=== PATIENT | male | born 1945 | race Caucasian/White ===

== ENCOUNTER 2022-01-05 11:49 | Inpatient (IN) | payer BC, OTHER ==
[~2022-01-05] VITALS: Ht 170.2 cm; Wt 60.7 kg
[2022-01-05 12:25] LABS: MEAN CORPUSCULAR HEMOGLOBIN 29.4 pg (28.0-32.0); MEAN CORPUSCULAR VOLUME 96.4 fL (80.0-94.0); MEAN PLATELET VOLUME 9.1 fl (7.4-10.4); RED BLOOD CELL COUNT 2.25 mill/uL (4.7-6.1); RED CELL DISTRIBUTION WIDTH 18.4 % (11.6-14.6)
[2022-01-05 12:28] LABS: CHLORIDE 109 mEq/L (98-107)
[2022-01-05 12:34] LABS: HEMATOCRIT. 21.6 % (42.0-52.0); HEMOGLOBIN. 6.6 g/dL (14.0-18.0); PLATELET 19 x1000/uL (130-400)
[2022-01-05 13:23] LABS: NUCLEATED RED BLOOD CELLS 15 /100 WBC
[2022-01-05 13:24] LABS: PLATELET ESTIMATE MARKEDLY DECREASED
[2022-01-05 22:00] VITALS: BP 118/53
[2022-01-06] VITALS (15 sets, daily range): BP systolic 87–103; BP diastolic 44–56
[2022-01-06 10:33] LABS: CHLORIDE 109 mEq/L (98-107)
[2022-01-06 10:40] LABS: MEAN CORPUSCULAR HEMOGLOBIN 29.3 pg (28.0-32.0); MEAN CORPUSCULAR VOLUME 92.4 fL (80.0-94.0); MEAN PLATELET VOLUME 8.1 fl (7.4-10.4); RED BLOOD CELL COUNT 2.26 mill/uL (4.7-6.1); RED CELL DISTRIBUTION WIDTH 17.9 % (11.6-14.6)
[2022-01-06] MEDS ORDERED: DIPHENHYDRAMINE 50MG/ML VIAL IV PRN (10:45)
[2022-01-06] MEDS ORDERED: ACETAMINOPHEN 650MG SUPP PR PRN (10:45)
[2022-01-06] MEDS ORDERED: ONDANSETRON HCL 4MG/2ML INJ IV PRN (10:45)
[2022-01-06] MEDS ORDERED: LORAZEPAM 2MG/ML CPJ IV PRN (10:45)
[2022-01-06] MEDS ORDERED: IPRATROPIUM/ALBUTEROL 0.5-3(2.5)MG/3ML NEB NEB PRN (10:45)
[2022-01-06] MEDS ORDERED: MORPHINE SULFATE 2 MG/ML CPJ (NOT FOR IM USE) IV PRN (10:45)
[2022-01-06 10:54] LABS: HEMATOCRIT. 20.9 % (42.0-52.0); HEMOGLOBIN. 6.6 g/dL (14.0-18.0)
[2022-01-06 11:54] LABS: NUCLEATED RED BLOOD CELLS 12 /100 WBC
[2022-01-06 11:55] LABS: PLATELET ESTIMATE MARKEDLY DECREASED
[2022-01-06 11:56] LABS: PLATELET 27 x1000/uL (130-400)
[2022-01-06 16:37] LABS: PROTHROMBIN TIME 11.2 sec (9.6-11.0)
[2022-01-06 17:07] LABS: TOTAL IRON BINDING CAPACITY 205 ug/dL (250-450)
[2022-01-06 17:38] LABS: HEPATITIS B SURFACE ANTIGEN NEGATIVE
[2022-01-06 17:54] LABS: FOLIC ACID (FOLATE) SERUM 19.5 ng/mL (>5.38)
[2022-01-06 21:14] LABS: HEMATOCRIT 22.7 % (42.0-52.0); HEMOGLOBIN 7.4 g/dL (14.0-18.0)
[2022-01-06] MEDS: BACITRACIN 15GM TUBE TOP SCH (22:00)
[2022-01-06] MEDS: FAMOTIDINE 20MG TABLET PO SCH (22:00)
[2022-01-07] VITALS (13 sets, daily range): BP systolic 68–125; BP diastolic 37–68
[2022-01-07 01:14] LABS: CLARITY URINE CLEAR (CLEAR); COLOR URINE YELLOW (YELLOW); KETONES URINE NEGATIVE (NEGATIVE); LEUKOCYTE ESTERASE URINE NEGATIVE (NEGATIVE); NITRITE URINE NEGATIVE (NEGATIVE); OCCULT BLOOD URINE NEGATIVE (NEGATIVE); PROTEIN URINE NEGATIVE (NEGATIVE); SPECIFIC GRAVITY URINE 1.018 (1.005-1.030)
[2022-01-07 01:29] LABS: *AMPHETAMINES SCREEN URINE NEGATIVE (NEGATIVE); *BARBITURATES SCREEN URINE NEGATIVE (NEGATIVE); *BENZODIAZEPINES SCREEN URINE NEGATIVE (NEGATIVE); *COCAINE SCREEN URINE NEGATIVE (NEGATIVE); CANNABINOID URINE SCREEN NEGATIVE (NEGATIVE); METHADONE URINE SCREEN NEGATIVE (NEGATIVE); OPIATES URINE SCREEN NEGATIVE (NEGATIVE); PHENCYCLIDINE URINE SCREEN NEGATIVE (NEGATIVE)
[2022-01-07] MEDS: DEXT 5%/0.45% NACL 1000ML 1,000 ML IV SCH ×3 (05:16→20:49)
[2022-01-07 06:42] LABS: CHLORIDE 109 mEq/L (98-107)
[2022-01-07] MEDS: BACITRACIN 15GM TUBE TOP SCH ×2 (08:50→20:49)
[2022-01-07] MEDS ORDERED: SODIUM CHLORIDE 0.9% 500 ML IV ONE (10:30)
[2022-01-07] MEDS ORDERED: MIDODRINE HCL 5MG TABLET PO NR (10:30)
[2022-01-07 11:45] LABS: HEMATOCRIT. 23.8 % (42.0-52.0); HEMOGLOBIN. 7.6 g/dL (14.0-18.0); MEAN CORPUSCULAR HEMOGLOBIN 29.8 pg (28.0-32.0); MEAN CORPUSCULAR VOLUME 93.2 fL (80.0-94.0); MEAN PLATELET VOLUME 7.4 fl (7.4-10.4); RED BLOOD CELL COUNT 2.55 mill/uL (4.7-6.1); RED CELL DISTRIBUTION WIDTH 17.4 % (11.6-14.6)
[2022-01-07 12:14] LABS: CHLORIDE 110 mEq/L (98-107)
[2022-01-07 12:28] LABS: NUCLEATED RED BLOOD CELLS 5 /100 WBC
[2022-01-07 12:30] LABS: PLATELET ESTIMATE MARKEDLY DECREASED
[2022-01-07 12:31] LABS: PLATELET 32 x1000/uL (130-400)
[2022-01-07] MEDS: MIDODRINE HCL 5MG TABLET PO SCH ×2 (13:00→17:16)
[2022-01-07] MEDS ORDERED: NALOXONE HCL 0.4MG/ML VIAL IV PRN (19:15)
[2022-01-07] MEDS: FAMOTIDINE 20MG TABLET PO SCH (20:49)
[2022-01-08] VITALS (7 sets, daily range): BP systolic 65–132; BP diastolic 42–73
[2022-01-08 01:35] LABS: HEMATOCRIT 25.7 % (42.0-52.0); HEMOGLOBIN 8.5 g/dL (14.0-18.0)
[2022-01-08 01:45] LABS: INR 1.1; PROTHROMBIN TIME 11.4 sec (9.6-11.0)
[2022-01-08 06:16] LABS: HEMATOCRIT. 26.3 % (42.0-52.0); HEMOGLOBIN. 8.5 g/dL (14.0-18.0); MEAN CORPUSCULAR VOLUME 92.8 fL (80.0-94.0); MEAN PLATELET VOLUME 7.9 fl (7.4-10.4); RED BLOOD CELL COUNT 2.83 mill/uL (4.7-6.1); RED CELL DISTRIBUTION WIDTH 17.1 % (11.6-14.6)
[2022-01-08 06:47] LABS: CHLORIDE 108 mEq/L (98-107)
[2022-01-08 07:52] LABS: PLATELET 40 x1000/uL (130-400)
[2022-01-08 08:22] LABS: NUCLEATED RED BLOOD CELLS 8 /100 WBC; PLATELET ESTIMATE MARKEDLY DECREASED
[2022-01-08] MEDS: BACITRACIN 15GM TUBE TOP SCH ×2 (09:25→20:41)
[2022-01-08] MEDS: DEXT 5%/0.45% NACL 1000ML 1,000 ML IV SCH ×2 (09:25→20:41)
[2022-01-08] MEDS: MIDODRINE HCL 5MG TABLET PO SCH ×3 (09:25→16:35)
[2022-01-08] MEDS ORDERED: POLYETHYLENE GLYCOL 3350 (17GM) 1 DOSE PACK PO SCH (11:15)
[2022-01-08] MEDS ORDERED: SODIUM CHLORIDE 0.9% 500 ML IV ONE (14:15)
[2022-01-08] MEDS ORDERED: LACTULOSE 20G/30ML UDC PO NR (14:15)
[2022-01-08] MEDS: PANTOPRAZOLE SODIUM 40 MG/VIAL IV SCH (16:31)
[2022-01-08 17:17] LABS: HEMATOCRIT. 25.9 % (42.0-52.0); HEMOGLOBIN. 8.3 g/dL (14.0-18.0); MEAN CORPUSCULAR HEMOGLOBIN 29.7 pg (28.0-32.0); MEAN CORPUSCULAR VOLUME 92.4 fL (80.0-94.0); RED CELL DISTRIBUTION WIDTH 17.5 % (11.6-14.6)
[2022-01-08 17:29] LABS: PLATELET 33 x1000/uL (130-400)
[2022-01-08 22:50] LABS: NUCLEATED RED BLOOD CELLS 7 /100 WBC
[2022-01-08 22:52] LABS: PLATELET ESTIMATE MARKEDLY DECREASED
[2022-01-09] VITALS: BP 94/46
[2022-01-09 04:00] VITALS: BP 98/46
[2022-01-09 08:00] VITALS: BP_SYST 70; BP_SYST 84; BP_SYST 98; BP_DIAS 40; BP_DIAS 46; BP_DIAS 54
[2022-01-09 08:05] LABS: HEMATOCRIT. 26.3 % (42.0-52.0); HEMOGLOBIN. 8.4 g/dL (14.0-18.0); MEAN CORPUSCULAR HEMOGLOBIN 29.9 pg (28.0-32.0); MEAN CORPUSCULAR VOLUME 93.3 fL (80.0-94.0); MEAN PLATELET VOLUME 8.6 fl (7.4-10.4); RED BLOOD CELL COUNT 2.82 mill/uL (4.7-6.1)
[2022-01-09 08:27] LABS: CHLORIDE 108 mEq/L (98-107)
[2022-01-09] MEDS: PANTOPRAZOLE SODIUM 40 MG/VIAL IV SCH ×2 (08:53→17:24)
[2022-01-09] MEDS: MIDODRINE HCL 5MG TABLET PO SCH ×3 (08:54→17:24)
[2022-01-09] MEDS: BACITRACIN 15GM TUBE TOP SCH ×2 (08:55→21:08)
[2022-01-09 10:43] LABS: NUCLEATED RED BLOOD CELLS 1 /100 WBC
[2022-01-09 10:44] LABS: PLATELET ESTIMATE MARKEDLY DECREASED
[2022-01-09 10:46] LABS: PLATELET 28 x1000/uL (130-400)
[2022-01-09] MEDS: FLUDROCORTISONE ACETATE 0.1MG TABLET PO SCH ×2 (11:00→13:54)
[2022-01-09 12:00] VITALS: BP 95/58
[2022-01-09] MEDS: DEXT 5%/0.45% NACL 1000ML 1,000 ML IV SCH (15:40)
[2022-01-09 16:00] VITALS: BP 109/46
[2022-01-09 20:00] VITALS: BP_SYST 130; BP_SYST 75; BP_SYST 90; BP_DIAS 45; BP_DIAS 46; BP_DIAS 74
[2022-01-10] VITALS: BP 102/43
[2022-01-10 04:00] VITALS: BP 94/48
[2022-01-10] MEDS: DEXT 5%/0.45% NACL 1000ML 1,000 ML IV SCH ×2 (05:14→21:51)
[2022-01-10 08:00] VITALS: BP_SYST 68; BP_SYST 76; BP_SYST 93; BP_DIAS 37; BP_DIAS 41; BP_DIAS 50
[2022-01-10 08:23] LABS: HEMATOCRIT. 26.4 % (42.0-52.0); HEMOGLOBIN. 8.4 g/dL (14.0-18.0); MEAN CORPUSCULAR HEMOGLOBIN 29.7 pg (28.0-32.0); MEAN CORPUSCULAR VOLUME 93.3 fL (80.0-94.0); MEAN PLATELET VOLUME 8.4 fl (7.4-10.4); RED BLOOD CELL COUNT 2.83 mill/uL (4.7-6.1); RED CELL DISTRIBUTION WIDTH 18.1 % (11.6-14.6)
[2022-01-10 09:14] LABS: CHLORIDE 107 mEq/L (98-107)
[2022-01-10] MEDS: MIDODRINE HCL 5MG TABLET PO SCH ×3 (09:36→17:32)
[2022-01-10] MEDS: PANTOPRAZOLE SODIUM 40 MG/VIAL IV SCH ×2 (09:36→17:33)
[2022-01-10] MEDS: FLUDROCORTISONE ACETATE 0.1MG TABLET PO SCH (09:36)
[2022-01-10] MEDS: BACITRACIN 15GM TUBE TOP SCH ×2 (09:36→21:51)
[2022-01-10 10:03] LABS: NUCLEATED RED BLOOD CELLS 1 /100 WBC
[2022-01-10 10:04] LABS: PLATELET 20 x1000/uL (130-400); PLATELET ESTIMATE MARKEDLY DECREASED
[2022-01-10 12:00] VITALS: BP_SYST 114; BP_SYST 131; BP_SYST 78; BP_DIAS 41; BP_DIAS 51; BP_DIAS 61
[2022-01-10 16:00] VITALS: BP_SYST 103; BP_SYST 118; BP_SYST 84; BP_DIAS 44; BP_DIAS 49; BP_DIAS 52
[2022-01-10 20:00] VITALS: BP 121/49
[2022-01-11] VITALS (10 sets, daily range): BP systolic 53–144; BP diastolic 28–61
[2022-01-11 06:37] LABS: HEMATOCRIT. 24.4 % (42.0-52.0); HEMOGLOBIN. 7.9 g/dL (14.0-18.0); MEAN CORPUSCULAR HEMOGLOBIN 30.1 pg (28.0-32.0); MEAN CORPUSCULAR VOLUME 92.7 fL (80.0-94.0); MEAN PLATELET VOLUME 11.6 fl (7.4-10.4); RED BLOOD CELL COUNT 2.63 mill/uL (4.7-6.1); RED CELL DISTRIBUTION WIDTH 18.6 % (11.6-14.6)
[2022-01-11 07:17] LABS: CHLORIDE 107 mEq/L (98-107)
[2022-01-11 07:40] LABS: PLATELET 7 x1000/uL (130-400)
[2022-01-11] MEDS: MIDODRINE HCL 5MG TABLET PO SCH ×3 (09:36→16:57)
[2022-01-11] MEDS: FLUDROCORTISONE ACETATE 0.1MG TABLET PO SCH (09:37)
[2022-01-11] MEDS: PANTOPRAZOLE SODIUM 40 MG/VIAL IV SCH (09:37)
[2022-01-11] MEDS: BACITRACIN 15GM TUBE TOP SCH ×2 (09:37→22:50)
[2022-01-11] MEDS: DEXT 5%/0.45% NACL 1000ML 1,000 ML IV SCH ×2 (16:56→22:50)
[2022-01-11 20:08] LABS: PLATELET ESTIMATE MARKEDLY DECREASED
[2022-01-11 20:57] LABS: HEMATOCRIT. 25.5 % (42.0-52.0); HEMOGLOBIN. 8.4 g/dL (14.0-18.0); MEAN CORPUSCULAR HEMOGLOBIN 30.2 pg (28.0-32.0); MEAN CORPUSCULAR VOLUME 91.7 fL (80.0-94.0); PLATELET 57 x1000/uL (130-400); RED BLOOD CELL COUNT 2.78 mill/uL (4.7-6.1); RED CELL DISTRIBUTION WIDTH 17.7 % (11.6-14.6)
[2022-01-11 21:30] LABS: NUCLEATED RED BLOOD CELLS 1 /100 WBC; PLATELET ESTIMATE DECREASED
[2022-01-12] VITALS: BP 123/57
[2022-01-12 04:00] VITALS: BP 97/50
[2022-01-12] MEDS: DEXT 5%/0.45% NACL 1000ML 1,000 ML IV SCH ×2 (06:21→16:59)
[2022-01-12 06:31] LABS: CHLORIDE 107 mEq/L (98-107)
[2022-01-12 06:32] LABS: HEMATOCRIT. 25.2 % (42.0-52.0); HEMOGLOBIN. 8.2 g/dL (14.0-18.0); MEAN CORPUSCULAR HEMOGLOBIN 30.1 pg (28.0-32.0); MEAN CORPUSCULAR VOLUME 92.2 fL (80.0-94.0); MEAN PLATELET VOLUME 7.6 fl (7.4-10.4); RED BLOOD CELL COUNT 2.73 mill/uL (4.7-6.1)
[2022-01-12 08:00] VITALS: BP 103/49
[2022-01-12] MEDS: FLUDROCORTISONE ACETATE 0.1MG TABLET PO SCH (09:49)
[2022-01-12] MEDS: BACITRACIN 15GM TUBE TOP SCH (09:49)
[2022-01-12] MEDS: MIDODRINE HCL 5MG TABLET PO SCH ×3 (09:50→16:01)
[2022-01-12 09:57] LABS: PLATELET ESTIMATE MARKEDLY DECREASED
[2022-01-12 09:58] LABS: PLATELET 47 x1000/uL (130-400)
[2022-01-12 12:00] VITALS: BP_SYST 108; BP_SYST 134; BP_SYST 83; BP_DIAS 45; BP_DIAS 50; BP_DIAS 59
[2022-01-12] MEDS ORDERED: SODIUM CHLORIDE 0.9% 500 ML IV NR (13:15)
[2022-01-12] MEDS ORDERED: MIDO10TA MT (14:20)
[2022-01-12] MEDS ORDERED: FLOR PO (14:20)
[2022-01-12] MEDS ORDERED: P20 MT (14:25)
[2022-01-12] MEDS ORDERED: HYDROCORTISONE SOD SUCCINATE 250 MG/2 ML VIAL IV NR (14:30)
[2022-01-12] MEDS: SODIUM CHLORIDE 1000MG TABLET PO SCH ×2 (15:04→17:21)
[2022-01-12 15:31] LABS: HEMOGLOBIN. 8.7 g/dL (14.0-18.0); MEAN CORPUSCULAR HEMOGLOBIN 30.2 pg (28.0-32.0); MEAN CORPUSCULAR VOLUME 93.7 fL (80.0-94.0); MEAN PLATELET VOLUME 7.1 fl (7.4-10.4); RED BLOOD CELL COUNT 2.88 mill/uL (4.7-6.1); RED CELL DISTRIBUTION WIDTH 17.8 % (11.6-14.6)
[2022-01-12 15:46] LABS: PLATELET 40 x1000/uL (130-400)
[2022-01-12 16:00] VITALS: BP_SYST 144; BP_SYST 94; BP_DIAS 49; BP_DIAS 56
[2022-01-12 17:31] VITALS: BP 94/49
[2022-01-12 18:31] LABS: PLATELET ESTIMATE MARKEDLY DECREASED
== END 2022-01-12 17:50 | disposition home or self-care (01) | DRG 809 ==
LOC: ER 11:49 → 6WST 18:45 → EDBEDREQ 18:58 → ENRESERV 20:38
PROVIDERS: ADMIT Family Medicine Adult Medicine; ATTEND Internal Medicine
PROC: 30233N1 Transfusion of Nonautologous Red Blood Cells into Peripheral Vein, Percutaneous Approach (ICD-10-PCS; principal; 2022-01-05)
PROC: 30233R1 Transfusion of Nonautologous Platelets into Peripheral Vein, Percutaneous Approach (ICD-10-PCS; 2022-01-06)
DX: D61.818 Other pancytopenia (principal); E27.40 Unspecified adrenocortical insufficiency; J44.1 Chronic obstructive pulmonary disease with (acute) exacerbation; I67.82 Cerebral ischemia; J98.11 Atelectasis; S05.41XA Penetrating wound of orbit with or without foreign body, right eye, initial encounter; C95.90 Leukemia, unspecified not having achieved remission; E44.0 Moderate protein-calorie malnutrition; I95.1 Orthostatic hypotension; G90.8 Other disorders of autonomic nervous system; E86.0 Dehydration; F17.200 Nicotine dependence, unspecified, uncomplicated; I10 Essential (primary) hypertension; K59.00 Constipation, unspecified; W18.39XA Other fall on same level, initial encounter; Y93.89 Activity, other specified; Y92.89 Other specified places as the place of occurrence of the external cause; Y99.8 Other external cause status; Z79.52 Long term (current) use of systemic steroids; Z88.0 Allergy status to penicillin; Z68.21 Body mass index [BMI] 21.0-21.9, adult; R22.0 Localized swelling, mass and lump, head; S01.111A Laceration without foreign body of right eyelid and periocular area, initial encounter; R73.9 Hyperglycemia, unspecified; I07.1 Rheumatic tricuspid insufficiency; Z68.20 Body mass index [BMI] 20.0-20.9, adult; G90.9 Disorder of the autonomic nervous system, unspecified; D46.9 Myelodysplastic syndrome, unspecified
CPT/HCPCS: 36415; 36430; 70486; 71045; 74176; 80048; 80053; 80305; 81003; 82024; 82533; 82607; 82728; 82746; 83540; 83550; 83880; 84145; 84443; 84484; 85014; 85018; 85025; 85044; 85049; 85384; 86705; 86709; 86803; 86850; 86900; 86920; 86945; 87340; 93005; 93306; 93880; 93970; 97162; 99285; C9113; J1720; P9016; P9034; P9035

== ENCOUNTER 2022-05-01 12:18 | Emergency (ER) | payer MEDICARE, OTHER ==
[~2022-05-01] VITALS: Ht 170.2 cm; Wt 54.0 kg
[~2022-05-01 12:18] MED LIST: FLOR PO; MIDO10TA MT; P20 MT
[2022-05-01 13:59] LABS: HEMATOCRIT. 26.2 % (42.0-52.0); HEMOGLOBIN. 7.9 g/dL (14.0-18.0); MEAN CORPUSCULAR HEMOGLOBIN 29.2 pg (28.0-32.0); MEAN CORPUSCULAR VOLUME 96.7 fL (80.0-94.0); MEAN PLATELET VOLUME 9.7 fl (7.4-10.4); RED CELL DISTRIBUTION WIDTH 19.8 % (11.6-14.6)
[2022-05-01 14:07] LABS: CHLORIDE 108 mEq/L (98-107)
[2022-05-01 14:15] LABS: PLATELET 15 x1000/uL (130-400)
[2022-05-01 14:49] LABS: NUCLEATED RED BLOOD CELLS 2 /100 WBC; PLATELET ESTIMATE MARKEDLY DECREASED
[2022-05-01 23:48] VITALS: BP 106/54
== END 2022-05-02 00:24 | disposition short-term general hospital (02) ==
LOC: ER 14:09 → CANBEDREQ 05-02 00:33
DX: D64.9 Anemia, unspecified (principal); Z85.6 Personal history of leukemia; E03.9 Hypothyroidism, unspecified; Z88.0 Allergy status to penicillin; Z20.822 Contact with and (suspected) exposure to COVID-19
CPT/HCPCS: 36415; 71045; 80053; 83605; 83690; 83880; 84484; 85025; 86850; 86900; 86901; 87426; 93005; 99285; C9803